=== PATIENT | female | born 1990 | race Caucasian/White ===

== ENCOUNTER → 2016-10-08 | Outpatient (CLI) | payer OTHER | LOC: FIMAGING 10:29 | PROVIDERS: ATTEND Internal Medicine | DX: N92.6 Irregular menstruation, unspecified (principal); N85.00 Endometrial hyperplasia, unspecified ==

== ENCOUNTER 2016-12-29 05:54 | Day surgery (SDC) | payer OTHER ==
[2016-12-29] MEDS ORDERED: LIDOCAINE 1% 2 ML INJ ONE (06:34)
--- NOTE | 2016-12-29 06:39 | PDGENHP ---
History and Physical History and Physical: ADAM SIMPSON. [id number] 1990 12/24/2016 08:33 AM Page: 07/19 PATIENT: ADAM SIMPSON DATE OF : 1990 DATE: 12/24/2016 8:33 AM VISIT TYPE: Pre-Operative Visit RENDERING PROVIDER: Sherrie Gomez MD REFERRING PROVIDER: DEPARTMENT: Gynecology HOME PHONE #: Assessment/Plan # Detail Type Description 1. Assessment Visit for pre-operative examination (Z01.818). Provider Plan Planned procedure: Hysteroscopy, D&C, polypectomy. Consents signed. Reviewed risks of pain, infection, bleeding, damage to other organs, failure to resolve condition, need for add'l procedures, transfusion. Normal exam, no further preoperative screening indicated. Already received call from anesthesia nurse. Reviewed pre and postoperative instructions. Rx for [place] and Motrin for post-operative pain No labs indicated No antibiotics indicated. Post-op visit 2 weeks after procedure 2. Assessment Endometrial mass (N94.89). 3. Assessment Menorrhagia with irregular cycle (N92.1). This 26 year old female presents for pre-op. History of Present Illness: 1. pre-op Here for preop for hysterosocopy, D&C, polypectomy. She just got back from traveling to [place], has had ongoing irregular bleeding. Otherwise no changes to health. Continues on iron for low ferritin. Not currently sexually active, not using contraception. From note 11/05/16: Pt is a healthy 25 yo with new onset mennorhagia and intermenstrual spotting x 6 months[address] COCs not helpful Dr. Siddiqi ordered pelvic US showin.3 cm endometrial mass, otherwise normal US and bilateral adnexa. consistent wtih polyp. Neg pap 10/02. Bleeding is as much as 1 tampon/hour for 1-2 days. On iron now, recent ferritin = 46 Medications (active prior to today) Medication Name Sig Desc Start Date Stop Date Refilled Elsewhere iron Once daily // Y Medications reconciled today. Allergies: Ingredient Reaction Medication Name Comment ADHESIVE BANDAGE SULFAMETHOXAZOLE HSP Bactrim AMOXICILLIN Hives Amoxicillin TRIMETHOPRIM HSP Bactrim REVIEW OF SYSTEMS System Neg/Pos Details GI Positive Abdominal pain, Bloating. ENMT Positive Nasal drainage. Reproductive Positive Dysmenorrhea, Menarche age (Menarche age was 13), Menorrhagia, Menses (Last menses was 12/15/2016), The patient is pre-menopausal. Allergic/Immuno Positive Environmental allergies. Eyes Negative Eye discharge and vision changes. ENMT Negative Ear drainage and hearing loss. MS Negative Joint pain, joint swelling and muscle weakness. Reproductive Negative Amenorrhea, breast discharge, breast lump(s), breast pain , dyspareunia, fibroids, history of abnormal PAP smear, history of infertility, ovarian cysts, sexual dysfunction, vaginal discharge and vaginal itching. Tho/Lymph Negative Easy bleeding and easy bruising. Psych Negative Insomnia and irritability. Negative Dysuria, hematuria, irregular menses, urgency, polyuria, urinary frequency and urinary incontinence. Constitutional Negative Fatigue, fever and night sweats. Respiratory Negative Cough, dyspnea and wheezing. Endocrine Negative Cold intolerance, heat intolerance, polydipsia and polyphagia. GI Negative Constipation, diarrhea, nausea and vomiting. Cardio Negative Chest pain, irregular heartbeat/palpitations and claudication. Allergic/Immuno Negative Food allergies. Integumentary Negative Change in shape/size of mole(s), pruritus and rash. Neuro Negative Gait disturbance, headache, memory impairment and weakness. Vital Signs: Premenopausal. HEIGHT Time ft in cm Last Measured Height Position % 11:06 AM 5 6 167.64 09/24/2016 WEIGHT/BSA/BMI Time lb oz kg Context % BMI kg/m2 BSA m2 11:06 AM 155 70.307 25.02 BLOOD PRESSURE Time BP mm/Hg Position Side Site Method Cuff Size 11:06 AM 130/58 TEMPERATURE/PULSE/RESPIRATION Time Temp F Temp C Temp Site Pulse/min Pattern Resp/ min 11:06 AM 75 MEASURED BY Time Measured by 11:06 AM Romelia Eastman Physical Exam Exam Findings Details Constitutional Normal Well developed. Respiratory Normal Auscultation - Normal. Effort - Normal. Cardiovascular Normal Regular rhythm. No murmurs, gallops, or rubs. Abdomen Normal No abdominal tenderness. Genitourinary * Pelvic deferred. Extremity Normal No edema. Psychiatric Normal Oriented to time, place, person and situation. Appropriate mood and affect. Medications (added or changed this visit): Started Medication Generic Name Directions Instruction Stopped iron FERROUS SULFATE Once daily 12/24/2016 [place] 5 mg-325 mg tablet HYDROCODONE/ACETAMINOPHEN take 1 tablet by oral route every 6 hours as needed for pain ORDERS/PROCEDURES/INSTRUCTIONS/EDUCATION IMMUNIZATIONS ORDERED OR ADMINISTERED BEFORE (AND INCLUDING) TODAY: Immunization Status Administered By Yellow fever Completed Chantale Stoner Typhoid, ViCPs Completed Chantale Stoner Electronically signed by: Sherrie Gomez MD 12/27/2016 02:47 PM Document generated by: Sherrie Gomez 12/27/2016 02:47 PM
[2016-12-29] MEDS ORDERED: VASOPRESSIN 20 UNIT/ML VIAL ONE (06:44)
[2016-12-29] MEDS ORDERED: SILVER NITRATE APPLICATOR 1 APPL TP ONE (06:45)
--- NOTE | 2016-12-29 06:57 | PDANEPAE ---
ANE History of Present Illness abnormal uterine bleeding ANE Past Medical History - Cardiovascular History Hx Hypertension: No Hx Arrhythmias: No Hx Chest Pain: No Hx Coronary Artery / Peripheral Vascular Disease: No Hx CHF / Valvular Disease: No Hx Palpitations: No - Pulmonary History Hx COPD: No Hx Asthma/Reactive Airway Disease: No Hx Recent Upper Respiratory Infection: No Hx Oxygen in Use at Home: No - Neurologic History Hx Cerebrovascular Accident: No Hx Seizures: No Hx Dementia: No - Endocrine History Hx Diabetes: No - Renal History Hx Renal Disorders: No - Liver History Hx Hepatic Disorders: No - Neurological & Psychiatric Hx Hx Neurological and Psychiatric Disorders: No - Cancer History Hx Cancer: No - Congenital Disorder History Hx Congenital Disorders: No - GI History Hx Gastrointestinal Disorders: No - Chronic Pain History Chronic Pain: No ANE Review of Systems - Exercise capacity METS (RN): 4 METS ANE Patient History - Allergies Allergies/Adverse Reactions: amoxicillin [Amoxicillin] Allergy (Verified 12/28/16 13:46) sulfamethoxazole [From Bactrim] Allergy (Verified 12/28/16 13:46) trimethoprim [From Bactrim] Allergy (Verified 12/28/16 13:46) - NPO status NPO Since - Liquids (Date): 12/28/16 NPO Since - Liquids (Time): 23:00 NPO Since - Solids (Date): 12/28/16 NPO Since - Solids (Time): 23:00 - Smoking Hx Smoking Status: Never smoked - Family Anes Hx Family Hx Anesthesia Complications: none ANE Labs/Vital Signs - Vital Signs Blood Pressure: 118/69 Heart Rate: 80 Respiratory Rate: 16 O2 Sat (%): 95 Height: 167.64 cm Weight: 68.039 kg ANE Physical Exam - Airway Neck exam: FROM Mallampati Score: Class 1 Mouth exam: normal dental/mouth exam - Pulmonary Pulmonary: no respiratory distress - Cardiovascular Cardiovascular: no murmur, rub, or gallop - ASA Status ASA Status: I ANE Anesthesia Plan Anesthesia Plan: GA w LMA
[2016-12-29] MEDS ORDERED: MIDAZOLAM 2 MG/2 ML VIAL IVP ONE (06:59)
[2016-12-29] MEDS ORDERED: LR 1,000 ML IV SCH (07:00)
[2016-12-29] MEDS ORDERED: PROPOFOL 200 MG/20 ML VIAL ONE ×2 (07:08→08:05)
[2016-12-29] MEDS ORDERED: fentaNYL 100 MCG/2 ML INJ ONE (07:15)
--- NOTE | 2016-12-29 07:15 | PDHPUP ---
History & Physical Update H&P update statement: This history and physical update is based on an assessment of the patient which was completed after admission or registration (within 24 hours), but prior to the surgery/procedure. H&P update: H&P reviewed & patient examined, no change in patient's condition since H&P completed
[2016-12-29] MEDS ORDERED: NALOXONE HCL 0.4 MG/ML INJ IVP PRN (08:08)
[2016-12-29] MEDS ORDERED: ACETAMINOPHEN 500 MG TAB PO PRN (08:08)
[2016-12-29] MEDS ORDERED: PROMETHAZINE HCL 25 MG/ML INJ IVP PRN (08:08)
[2016-12-29] MEDS ORDERED: fentaNYL 100 MCG/2 ML INJ IVP PRN (08:08)
[2016-12-29] MEDS ORDERED: LR 500 ML IV PRN (08:08)
[2016-12-29] MEDS ORDERED: ALBUTEROL 3 ML DEYVIAL IH PRN (08:08)
[2016-12-29] MEDS ORDERED: ONDANSETRON 4 MG/2 ML VIAL IVP PRN (08:08)
[2016-12-29] MEDS ORDERED: OXYCODONE/APAP 5/325 TAB PO PRN (08:08)
[2016-12-29] MEDS ORDERED: HYDROCODONE/APAP 5/325 TAB PO PRN (08:08)
[2016-12-29] MEDS ORDERED: HYDROmorphONE/DILAUDID 1 MG/ML SYR IVP PRN (08:08)
[2016-12-29] MEDS ORDERED: MONSELS-FERRIC SUBSULFATE 8 GM SDV TP ONE (08:20)
--- NOTE | 2016-12-29 08:44 | POSTANESTH ---
Post Anesthetic Evaluation Cardiovascular Status: Normal, Stable Respiratory Status: Normal, Stable Level of Consciousness/Mental Status: Can Participate in Eval Pain Control: Adequate, Prn Tx Ordered Nausea/Vomiting Control: Adequate, Prn Tx Ordered Complications Possibly Related to Anesthesia: None Noted
--- NOTE | 2016-12-29 09:10 | GOP ---
[f rep st] OPERATIVE REPORT DATE OF OPERATION: 12/29/2016 SURGEON: Sherrie Gomez MD ANESTHETIC: General with LMA. ANESTHESIA: Armando Sierra MD PREOPERATIVE DIAGNOSIS: Abnormal uterine bleeding. Endometrial mass. POSTOPERATIVE DIAGNOSIS: Abnormal uterine bleeding. Prolapsed submucosal fibroid. PROCEDURE PERFORMED: Exam under anesthesia, diagnostic hysteroscopy, hysteroscopic myomectomy. FINDINGS: At time of exam under anesthesia, the patient was found to have a partially prolapsed fibroid that was approximately 3 cm. At time of diagnostic hysteroscopy, the remaining fibroid stalk was noted and was completely resected. Intrauterine cavity otherwise completely within normal limits. Fluid deficit 150 mL. ESTIMATED BLOOD LOSS: 100 mL. FLUIDS: 500 ml crystalloid INDICATIONS: Patient is a 26-year-old, G0 who presented with abnormal uterine bleeding in September 2016 to another provider who did a pelvic exam that was completely normal at that time. An ultrasound was performed demonstrating a likely 4 cm intrauterine mass. The patient presented to my office for consultation in October 2016, and it was recommended to proceed with hysteroscopy and removal of intrauterine mass. She declined pelvic exam at that time. As she had trips and other life commitments she was unable to schedule procedure until today. So, she then presented today for the planned procedure of hysteroscopy, D and C, and endometrial mass resection. She has continued to have abnormal bleeding. She is also taking iron for a borderline low ferritin. Reviewed all the risks and benefits of the procedure, and she desired to proceed. DESCRIPTION OF PROCEDURE: Patient was brought to the operating room, and a time -out was performed. General anesthetic with LMA was initiated without complication. She was prepped and draped in the normal sterile fashion in dorsal lithotomy with Rob stirrups. A final time-out was performed with all parties in agreement of patient and procedure. She had voided just prior to entering the operating room. The speculum was placed, and the findings were as noted above. The prolapsed fibroid was grasped with a ring forceps and was twisted off. There was no significant bleeding at this time. A single-toothed tenaculum was placed on the anterior lip of the cervix. The hysteroscope was then introduced. No dilation was needed as the cervix was already dilated to approximately 10 mm. A 2nd tenaculum was placed on the posterior lip of the cervix to control the backflow of fluid from the dilated cervix. The findings were as noted above with the stalk of the fibroid still attached in the lower uterine body anteriorly. The Truclear 5 mm incisor blade was introduced, and the remainder of the fibroid stalk was completely resected. There was no bleeding at this time. The remainder of the uterine cavity was completely normal. Total fluid deficit 150 mL normal saline. All instruments were removed at this time. There was a small amount of bleeding at 7 o'clock at the cervix where a 2nd tenaculum had been placed. This was resolved with pressure and Monsel's. The patient was awakened and brought to the recovery room in good condition. COMPLICATIONS: None. Outcome stable to PACU. /[id number]/MODL MTDD
[2016-12-29 09:48] VITALS: O2SAT 98
[2016-12-29 10:01] VITALS: BP 115/76; PULSE 64; RESP 16; TEMP 98.2
== END 2016-12-29 10:20 | disposition home or self-care (01) ==
LOC: FSGY 05:54
PROVIDERS: ATTEND Obstetrics & Gynecology
PROC: 0UDB8ZX Extraction of Endometrium, Via Natural or Artificial Opening Endoscopic, Diagnostic (ICD-10-PCS; principal; 2016-12-29 07:30)
DX: D25.0 Submucous leiomyoma of uterus (principal); N93.9 Abnormal uterine and vaginal bleeding, unspecified
CPT/HCPCS: 58558; C1782; J2250; J2704; J3010